=== PATIENT | male | born 1995 | race American Indian/Alaskan Native ===

== ENCOUNTER 2021-11-17 19:12 | Emergency (ER) | payer SELFPAY ==
[2021-11-17 20:26] VITALS: BP 135/84
[2021-11-17 22:55] LABS: Basophils % (Auto) 0.5 % (0.0-1.8); Eosinophils % (Auto) 0.3 % (0.0-4.3); Hematocrit 48.8 % (35.5-45.6); Hemoglobin 16.7 gm/dl (11.8-15.2); Lymphocytes # (Auto) 2.9 K/mm3 (1.2-5.4); Lymphocytes % (Auto) 36.6 % (13.4-35.0); Mean Corpuscular HGB Conc 34 % (32-34); Mean Corpuscular Volume 90 fl (84-94); Monocytes # (Auto) 0.6 K/mm3 (0.0-0.8); Monocytes % (Auto) 7.2 % (0.0-7.3); Platelet Count 270 K/mm3 (140-440); Red Blood Count 5.45 M/mm3 (3.65-5.03)
[2021-11-17 22:56] LABS: BUN/Creatinine Ratio 16; Blood Urea Nitrogen 13 mg/dL (9-20); Calcium 9.9 mg/dL (8.4-10.2); Hemolysis Index 35
[2021-11-18 02:18] LABS: Mucus,Urine FEW /HPF
[2021-11-18] MEDS ORDERED: LIDOCAINE-MPF (1%) 10 MG/1 ML VIAL 5 ML INFILTRATI ONE (02:24)
[2021-11-18 02:28] LABS: Color,Urine Yellow (Yellow)
--- NOTE | 2021-11-18 02:30 | Emergency Department Report ---
ED Male HPI - General Chief complaint: Urogenital-Male Stated complaint: UTI Source: patient Mode of arrival: Ambulatory Limitations: No Limitations - History of Present Illness Initial comments: Patient is a 26-year-old male with no past medical history who presents to the ED with complaint of acute onset persistent dysuria, urinary frequency and urgency, penile discharge for the last 3 days. Patient states that he had an unprotected sexual intercourse about a week ago. Patient states that the symptoms have been persistent and worsened in the last 2 days. Patient denies fever, chills, nausea, vomiting, dizziness, syncope, testicular pain, hematuria or abdominal pain. MD Complaint: penile discharge, dysuria -: Gradual, days(s) (3) Location: penis Radiation: none Severity: moderate Severity scale (0 -10): 4 Quality: aching, burning Consistency: constant Improves with: none Worsens with: urination denies other symptoms. denies: discharge, swelling, mass, rash, urinary retention, blood in urine, dysuria, fever, nausea/vomiting, incontinence - Related Data Sexually active: Yes Previous Rx's Medication Instructions Recorded Last Taken Type Doxycycline Hyclate 100 mg PO Q12H #20 cap 11/18/21 Unknown Rx Ibuprofen [Motrin] 600 mg PO Q8H PRN #20 tablet 11/18/21 Unknown Rx Allergies Allergy/AdvReac Type Severity Reaction Status Date / Time No Known Allergies Allergy Unverified 11/17/21 20:27 ED Review of Systems ROS: Stated complaint: UTI Other details as noted in HPI Constitutional: denies: chills, fever Eyes: denies: eye pain, eye discharge, vision change ENT: denies: ear pain, throat pain Respiratory: denies: cough, shortness of breath, wheezing Cardiovascular: denies: chest pain, palpitations Endocrine: no symptoms reported Gastrointestinal: denies: abdominal pain, nausea, vomiting, diarrhea Genitourinary: urgency, dysuria, frequency, discharge Musculoskeletal: denies: back pain, joint swelling, arthralgia Skin: denies: rash, lesions Neurological: denies: headache, weakness, paresthesias Psychiatric: denies: anxiety, depression Hematological/Lymphatic: denies: easy bleeding, easy bruising ED Past Medical Hx - Past Medical History Previous Medical History?: No - Surgical History Past Surgical History?: No - Medications Home Medications: Home Medications Medication Instructions Recorded Confirmed Last Taken Type Doxycycline Hyclate 100 mg PO Q12H #20 cap 11/18/21 Unknown Rx Ibuprofen [Motrin] 600 mg PO Q8H PRN #20 tablet 11/18/21 Unknown Rx ED Physical Exam - General Limitations: No Limitations General appearance: alert, in no apparent distress - Head Head exam: Present: atraumatic, normocephalic, normal inspection - Eye Eye exam: Present: normal appearance, PERRL, EOMI Pupils: Present: normal accommodation - ENT ENT exam: Present: normal exam, normal orophraynx, mucous membranes moist, TM's normal bilaterally, normal external ear exam - Neck Neck exam: Present: normal inspection, full ROM. Absent: tenderness - Respiratory Respiratory exam: Present: normal lung sounds bilaterally. Absent: respiratory distress, wheezes, rales, rhonchi, chest wall tenderness, accessory muscle use, decreased breath sounds, prolonged expiratory - Cardiovascular Cardiovascular Exam: Present: regular rate, normal rhythm, normal heart sounds. Absent: systolic murmur, diastolic murmur, rubs, gallop - GI/Abdominal GI/Abdominal exam: Present: soft, normal bowel sounds. Absent: tenderness, guarding, rebound, hyperactive bowel sounds, hypoactive bowel sounds, mass - External exam: Present: other (Genital exam deferred) - Extremities Exam Extremities exam: Present: normal inspection, full ROM, normal capillary refill - Back Exam Back exam: Present: normal inspection, full ROM. Absent: tenderness, CVA tenderness (R), CVA tenderness (L), muscle spasm, paraspinal tenderness, vertebral tenderness - Neurological Exam Neurological exam: Present: alert, oriented X3, CN II-XII intact, normal gait, reflexes normal - Psychiatric Psychiatric exam: Present: normal affect, normal mood - Skin Skin exam: Present: warm, dry, intact, normal color. Absent: rash ED Course Vital Signs 11/17/21 20:25 Temperature 98.1 F Pulse Rate 109 H Respiratory 16 Rate Blood Pressure 135/84 [Right] O2 Sat by Pulse 99 Oximetry ED Medical Decision Making - Lab Data Result diagrams: 11/17/21 21:51 11/17/21 21:51 - Medical Decision Making This is a 26-year-old male with no past medical history who presents to the ED with complaint of acute onset persistent dysuria, urinary frequency and urgency, penile discharge for the last 3 days. Patient states that he had an unprotected sexual intercourse about a week ago. Patient states that the symptoms have been persistent and worsened in the last 2 days. In the ED, patient is alert and oriented x3 and is not in any distress. Patient is hemodynamically stable. All lab test results were reviewed and are all n onactionable. Patient was treated empirically with Rocephin 1 g intramuscular injection and discharged home on medications and advised to follow-up with [facility] department for further STD testing. Patient was advised to ensure that his sexual partners also get treated for the same. Patient is advised to return to the ED immediately if symptoms get worse. - Differential Diagnosis STD; urethritis; UTI; gonorrhea; chlamydia; Critical care attestation.: If time is entered above; I have spent that time in minutes in the direct care of this critically ill patient, excluding procedure time. ED Disposition Clinical Impression: Gonococcal urethritis in male, Acute urinary tract infection, Chlamydial urethritis in male Disposition: 01 HOME / SELF CARE / HOMELESS Is pt being admited?: No Does the pt Need Aspirin: No Condition: Stable Instructions: Chlamydia, Male, Urinary Tract Infection, Adult, [id number], Gonorrhea Additional Instructions: Take medication with food, drink plenty of fluids, follow-up with your primary care physician or [facility] department for further STD testing including HIV and syphilis. Ensure that all sexual partners get treated for the same. Observe safe sexual practices. Return to the ED immediately if symptoms get worse Prescriptions: Doxycycline Hyclate 100 mg PO Q12H #20 cap Ibuprofen [Motrin] 600 mg PO Q8H PRN #20 tablet PRN Reason: Pain Referrals: DUSTIN BLAIR MD [Primary Care Provider] - 3-5 Days Forms: STI Treatment and Prevention Time of Disposition: 02:29 Print Language: GAMBIAN
== END 2021-11-18 03:11 | disposition home or self-care (01) ==
LOC: ED 19:12
DX: A54.01 Gonococcal cystitis and urethritis, unspecified (principal); N39.0 Urinary tract infection, site not specified; A56.01 Chlamydial cystitis and urethritis
CPT/HCPCS: 36415; 80048; 81001; 85025; 96372; 99283; J0696; J3490